=== PATIENT | male | born 1940 | race Caucasian/White ===

== ENCOUNTER 2025-06-04 08:18 | Day surgery (SDC) | payer MEDICARE ==
[2025-05-31 08:55] LABS: MEAN PLATELET VOLUME 6.6 FL (7.4-10.4); RED CELL DISTRIBUTION WIDTH 13.4 % (11.5-14.5)
[2025-05-31 09:10] LABS: APTT 26 SECONDS (22-32); INR 0.9 INR
[2025-05-31 09:11] LABS: CHOL/HDL RATIO 2.4 (0.00-4.99); CREATININE 1.15 MG/DL (0.60-1.10); LDL CHOLESTEROL 116 MG/DL (50-100); TOTAL CARBON DIOXIDE 30.6 MMOL/L (24-32); eGFR 61 ML/MIN
[~2025-06-04] VITALS: Ht 172.7 cm; Wt 67.0 kg
[2025-06-04] VITALS (9 sets, daily range): BP systolic 116–151; BP diastolic 59–93; PULSE 60–81; RESP 13–18; TEMP 98; O2SAT 94–99
[~2025-06-04 08:18] MED LIST: Fish Oil PO; HYDR-3965 PO; LISI20TA28 PO; MULT-1085 PO; Tylenol Arthritis PO
--- NOTE | 2025-06-04 08:49 | ELECTROCARDIOGRAPH REPORT ---
[facility] Test Date: 2025-06-04 Test Time: 08:43:41 Pat Name: TANNER FLOYD Department: [facility] Patient ID: [id number] Room: Gender: M Cardiology Specialist: YESSICA : 1940 Requested By: ZACHARY HERRERA Order Number: [id number] Reading MD: Dr. SLOAN Alas Measurements Intervals [place] Rate: 76 P: 21 NH: 171 QRS: 45 QRSD: 82 T: 30 QT: 373 QTc: 420 Interpretive Statements Sinus rhythm Borderline low voltage, extremity leads Electronically Signed On 06-04-2025 9:37:[address] SLOAN Alas Please click the below link to view image of tracing.
[2025-06-04] MEDS ORDERED: verapamil 2.5 mg/ml inj IV ONE (12:58)
[2025-06-04] MEDS ORDERED: fentaNYL/PF 50MCG/1 ML 2ML syringe ONE (12:58)
[2025-06-04] MEDS ORDERED: LIDOcaine 1% (10mg/ml) 2ml vial ONE (12:58)
[2025-06-04] MEDS ORDERED: heparin 1,000unit/ml 10ml vial 10 ML ONE (12:59)
[2025-06-04] MEDS ORDERED: midazolam 1 mg/ML 2ml injection ONE ×2 (12:59→13:31)
[2025-06-04] MEDS ORDERED: nitroGLYCERIN 500mcg/5mL D5W 5 ML IV ONE (13:04)
--- NOTE | 2025-06-08 20:58 | CARDIOLOGY REPORT ---
DATE OF SERVICE: 06/04/2025 DICTATING PHYSICIAN: Venus Woodard MD CARDIAC CATHETERIZATION REPORT DATE OF STUDY: 06/04/2025. PROCEDURES: * Selective coronary angiography. * Conscious sedation monitoring time for 15 minutes. INDICATION: Aortic stenosis. PHYSICIAN: Milton Woodard MD DESCRIPTION OF PROCEDURE: After informed consent was obtained, the patient was brought to the lab where he was prepped and draped in the usual sterile fashion. A 6-Tamazight sheath was inserted into the right radial artery. Thereafter, over a J-wire, a TIG catheter was advanced into the ascending aorta. The wire removed. The catheter manipulated and selective right and left coronary angiography was performed. HEMODYNAMICS: For the patient's hemodynamics, please refer to the event log. Left ventriculography was not performed. FINDINGS: The left main coronary arteries are normal caliber vessels, free of significant disease. The left anterior descending coronary artery is a medium caliber tortuous vessel with a 20% mid vessel stenosis. The right coronary artery is a normal caliber dominant vessel with 20-30% mid right coronary artery stenosis. IMPRESSION: * Mild luminal irregularities with 20% mid LAD and a 20-30% mid RCA stenosis. * Left ventriculography was not performed. RECOMMENDATION: Transcatheter aortic valve replacement. Venus Woodard MD TID: [id number] RECEIPT: [id number] MIGUEL ANGEL/MICHELLE
== END 2025-06-04 17:15 | disposition home or self-care (01) ==
LOC: SSTAY O 08:18
PROVIDERS: ATTEND Student in an Organized Health Care Education/Training Program
DX: I35.0 Nonrheumatic aortic (valve) stenosis (principal); I25.10 Atherosclerotic heart disease of native coronary artery without angina pectoris; I10 Essential (primary) hypertension; E78.00 Pure hypercholesterolemia, unspecified; Z79.891 Long term (current) use of opiate analgesic; Z79.899 Other long term (current) drug therapy; Z82.49 Family history of ischemic heart disease and other diseases of the circulatory system; Z83.3 Family history of diabetes mellitus
CPT/HCPCS: 36415; 80048; 80061; 83695; 85025; 85610; 85730; 93005; 93454; 99152; A6258; A6402; C1894; J1644; J2003; J2250; J3010; J3490; J7030; Q0163; Q9967; Z7610; 99153; A6449

== ENCOUNTER 2025-08-21 11:27 | Outpatient (CLI) | payer MEDICARE ==
[~2025-08-21 11:27] MED LIST changes: +IODIXANOL 320 MG/ML INFUS..BTL 100ML IV ONE
[2025-08-21 11:58] LABS: MEAN PLATELET VOLUME 7.2 FL (7.4-10.4); RED CELL DISTRIBUTION WIDTH 14.8 % (11.5-14.5)
[2025-08-21 12:08] LABS: APTT 25 SECONDS (22-32); INR 0.9 INR
[2025-08-21 12:17] LABS: CREATININE 1.22 MG/DL (0.60-1.10); TOTAL CARBON DIOXIDE 29.8 MMOL/L (24-32); eGFR 57 ML/MIN
[2025-08-21 12:28] LABS: PRO BRAIN NATRIURETIC PEPTIDE 142 PG/ML (0-450)
--- NOTE | 2025-08-21 14:00 | RADIOLOGY REPORT ---
DI CHEST,TWO VIEWS CLINICAL HISTORY: AV STENOSIS,SOB,CAROTID STENOSIS COMPARISON: DI CHEST,SINGLE VIEW on DOS: 08/21/25 TECHNIQUE: Frontal and lateral view of the chest was obtained FINDINGS: Lines and Tubes: None Lungs: No focal consolidation. Pleura: No effusion. No pneumothorax. Cardiomediastinal contours: Unremarkable. Atherosclerotic vascular calcifications of the thoracic aorta are noted. Bones: No acute osseous abnormality. IMPRESSION: No acute cardiopulmonary disease.
--- NOTE | 2025-08-22 17:18 | RADIOLOGY REPORT ---
Procedure: CT CTA TAVR Reason for study/Clinical History: AV STENOSIS,SOB,CAROTID STENOSIS Comparison Study: DI CHEST,SINGLE VIEW on DOS: 08/22/25, DI CHEST,SINGLE VIEW on DOS: 08/21/25, DI CHEST,SINGLE VIEW on DOS: 08/21/25, DI CHEST,TWO VIEWS on DOS: 08/21/25, CATH HEART CATH W/WO STENT on DOS: 06/04/25 Exam Date: 08/21/2025 12:55 PM TECHNIQUE: Multiplanar reformatted images were generated from volumetric data acquired on a multidetector CT scanner. Cardiac gating was utilized. Arterial phase images were obtained through the chest, abdomen and pelvis following intravenous administration of contrast material. 145 mL visipaque [address] dose reduction techniques were utilized. 3-D reconstructions were performed on an independent workstation. Note: Per technologist notes, the patient coded approximately 15 minutes after injection, after getting off of the CT table. FINDINGS: Vascular: Aortic measurements: Aortic annulus: 28.9 x 23.2 mm Sinus of valsalva: right cusp 34.6 mm, left cusp 38.8 mm, non-coronary cusp 35.6 mm Right coronary distance: 16.7 mm Left coronary distance: 15.[address] junction 30.4 mm Ascending aorta 37.3 mm Aortic arch a 9.2 mm Descending aorta 26.6 mm Minimal abdominal aorta 14.8 mm Right common iliac 8.25 mm, tortuosity index 1.46 Left common iliac 8.67 mm, tortuosity index 1.32 Significant aortic leaflet calcification is present. There is normal caliber of aorta. No aortic dissection. Aortic arch anatomy is conventional . No exophytic calcified or soft plaque of the aorta. No central pulmonary embolism. There is normal dimension of the main pulmonary artery. Heart is normal in size. Mild mitral annular calcification. There are no intracardiac filling defects. No pericardial effusion. Mild coronary artery calcification. Mediastinum: There is no significant intrathoracic or axillary lymphadenopathy by CT size criteria. Lungs: Expiratory phase appearance of the trachea. Bibasal subpleural fibrotic changes, [id number], incompletely evaluated. No focal consolidation. Pleura: No effusion or pneumothorax. Chest wall: No acute abnormality. Abdomen and Pelvis: Liver: Normal in appearance. Gallbladder: Normal in appearance. Spleen: Normal in appearance. Pancreas: Normal in appearance. Adrenals: Normal in appearance. Kidneys: Symmetric enhancement with corticomedullary phase differentiation which limits assessment for renal neoplasm. Probable subcentimeter cysts. Bowel: Assessment of bowel is limited without oral contrast material. Diverticulosis of the large bowel. No findings of bowel obstruction. Peritoneum: No free air or free fluid. Lymph nodes: No lymphadenopathy by CT size criteria. Pelvic structures: Prostate is enlarged and demonstrates heterogeneous enhancement. Urinary bladder is distended with mural thickening. Soft tissue: Calcifications are identified within the proximal rectus femoris on the left. Fat containing right flank hernia. Bones: Findings of remote right pelvic fracture. Grade 1-2 anterolisthesis of L5 upon S1. Compression deformities of the L3 and L4 superior endplates. IMPRESSION: 1. TAVR planning with vascular measurements as described above. 2. No exophytic calcified or soft plaque of the aorta. 3. Prostate is enlarged with findings of urinary bladder outlet obstruction. Recommend clinical correlation. Consider correlation with PSA. 4. Fibrotic changes of the lung bases. Consider high-resolution CT chest for further evaluation for fibrosing interstitial lung disease.
== END 2025-08-21 23:59 | disposition home or self-care (01) ==
LOC: RAD 11:27
PROVIDERS: ATTEND Internal Medicine Cardiovascular Disease
DX: S32.89XA Fracture of other parts of pelvis, initial encounter for closed fracture (principal); I35.0 Nonrheumatic aortic (valve) stenosis; R06.02 Shortness of breath; I65.29 Occlusion and stenosis of unspecified carotid artery; X58.XXXA Exposure to other specified factors, initial encounter; Y93.89 Activity, other specified; Y92.89 Other specified places as the place of occurrence of the external cause; Y99.8 Other external cause status
CPT/HCPCS: 36415; 71046; 71275; 74174; 75572; 80053; 83880; 85025; 85610; 85730; Q9967